=== PATIENT | female | born 1980 | race Caucasian/White ===

== ENCOUNTER 2020-05-14 10:05 | Emergency (ER) | payer OTHER ==
[~2020-05-14] VITALS: Ht 182.9 cm; Wt 129.3 kg
[2020-05-14] MEDS ORDERED: VERAPAMIL ER240 M1 PO (10:20)
[2020-05-14] MEDS ORDERED: CELEXA 20 MG TA20 MG PO (10:20)
[2020-05-14] MEDS ORDERED: METFORMIN HCL500 M3 PO (10:21)
[2020-05-14 11:10] VITALS: BP 140/82
== END 2020-05-14 11:27 | disposition home or self-care (01) ==
LOC: M.ERS 10:05
DX: J06.9 Acute upper respiratory infection, unspecified (principal); Z20.828 Contact with and (suspected) exposure to other viral communicable diseases; Z79.899 Other long term (current) drug therapy; Z88.1 Allergy status to other antibiotic agents; Z88.8 Allergy status to other drugs, medicaments and biological substances